=== PATIENT | male | born 1960 | race Caucasian/White ===

== ENCOUNTER 2016-10-09 20:55 | Inpatient (IN) | payer OTHER ==
[2016-10-07 13:37] LABS: A/G RATIO 1.1 (0.7-1.9); ALBUMIN 3.6 G/DL (3.5-5.0); BUN (BLOOD UREA NITROGEN) 20 MG/DL (6-23); CALCIUM, SERUM 8.9 MG/DL (8.5-10.4); CHLORIDE, SERUM 103 MMOL/L (96-112); CO2 (CARBON DIOXIDE) 29 MMOL/L (24-34); CREATININE 1.11 MG/DL (0.70-1.30); GFR AFRICAN AMERICAN 84 ML/MIN (>=60); GFR NON AFRICAN AMERICAN 73 ML/MIN (>=60); GLOBULIN 3.3 G/DL (2.5-4.1); POTASSIUM, SERUM 4.9 MMOL/L (3.5-5.3); SGOT(AST) 17 U/L (5-40); SGPT(ALT) 23 U/L (5-65); SODIUM, SERUM 141 MMOL/L (135-148); TOTAL BILIRUBIN 0.5 MG/DL (0-1.2); TOTAL PROTEIN 6.9 G/DL (6.0-8.5)
[2016-10-07 13:41] LABS: ALKALINE PHOSPHATASE 100 U/L (45-117); GLUCOSE, SERUM 217 MG/DL (60-99)
--- NOTE | ~2016-10-09 | OP ---
Record Of Operation [facility] [address] [place]. [address] NAME: CLEO MCGREGOR : 56 STATUS : ADM IN PAT#: [id number] AGE: 56 ADM/REG DATE : 10/09/16 MR#: [id number] REPORT SERV DATE: 10/14/16 DICTATED BY: TROY CHRISTINE DATE: 10/14/16 REPORT STATUS : Draft TRANSCRIBED BY: MODSiddhartha DATE: 10/14/16 DATE OF PROCEDURE: 10/14/2016 PREOPERATIVE DIAGNOSES: 1. Osteomyelitis, left foot, diabetic mal perforans ulcer. 2. Osteomyelitis of the forefoot. 3. Right mid superficial femoral artery obstruction. POSTOPERATIVE DIAGNOSIS: High-grade complex dissection of the right mid superficial femoral artery. PROCEDURE PERFORMED: 1. Aortogram with left lower extremity runoff. 2. Selective catheterization of left SFA and popliteal artery with direct arteriography. 3. Angioplasty stent reconstruction of the mid segment of the left superficial femoral artery with a 6 x 100 stent with secondary angioplasty 6 x 80 balloon. SURGEON: Troy Christine M.D. ANESTHESIA: Local MAC. COMPLICATIONS: None. INDICATION FOR PROCEDURE: Secondary to this very pleasant, 56-year-old diabetic male presenting with an ulceration of the base of the left foot associated with osteomyelitis of the forefoot. Recommendations were made for IV antibiotics, debridement, arteriogram for a potential limb salvage. The patient presents today for the arteriogram portion of the recommendation. DETAILS OF THE PROCEDURE: The patient was brought to the endovascular operating room, placed in supine position, prepped and draped in routine sterile fashion with attention to the left leg and bilateral groin. The right femoral artery was interrogated with ultrasound and found to be compressible. Needle was passed into this artery under direct ultrasound vision. Pictures were then taken and placed on the chart. Next, wires were passed into the aorta followed by a 6-[place] sheath, and then a [place] flush catheter advanced to the level of L3. AP abdominal aortogram was performed showing evidence of widely patent infrarenal aorta, patent common external iliac arteries bilaterally. Catheter was then advanced from the right side into the left femoral. Arteriogram demonstrated right patent common femoral artery, profunda femoral artery, and superficial femoral artery proximal mid distal; however, there was evidence of a flap and dissection. Catheter was advanced to this level. An arteriogram demonstrated a fairly long complex spiraling dissection associated with the complex plaque. Wire was passed through this area. Arteriogram was performed distally of the popliteal and the tibial vessels. All 3 were patent to the ankle with excellent flow to the pedal arch. The proximal SFA was then remitted. Distal SFA and proximal popliteal were then readdressed. Arteriogram confirmed the dissection. Stent was then placed, 6 x 100, bridging the dissection, opening this adequately. Angioplasty was Record Of Operation [address] [address] NAME: CLEO MCGREGOR : 56 STATUS : ADM IN PAT#: [id number] AGE: 56 ADM/REG DATE : 10/09/16 MR#: [id number] REPORT SERV DATE: 10/14/16 DICTATED BY: TROY CHRISTINE DATE: 10/14/16 REPORT STATUS : Draft TRANSCRIBED BY: ARIE DATE: 10/14/16 performed to secure the stent into position. With this completed, wires and catheter sheaths were then removed. The right groin was then closed with Angio-Seal. Patient tolerated the procedure well. NICOLAS/ARIE Troy Christine M.D. / [id number]
--- NOTE | ~2016-10-09 | CN ---
Consultation Report [facility] [address] [place]. [address] NAME: CLEO MCGREGOR : 56 STATUS : ADM IN [facility]#: [id number] AGE: 56 ADM/REG DATE : 10/09/16 MR#: [id number] REPORT SERV DATE: 10/10/16 DICTATED BY: SOBEIDA IGLESIAS DATE: 10/10/16 REPORT STATUS : Draft TRANSCRIBED BY: MODSiddhartha DATE: 10/10/16 CONSULTATION DATE OF CONSULTATION: 10/10/2016 REASON FOR CONSULTATION: Left foot ulceration. HISTORY OF PRESENT ILLNESS: The patient is a 56-year-old white male, who presented to the emergency room with a complaint of an infected ulceration to his left foot. The patient has a lengthy history of diabetes and with multiple previous ulcerations and previous amputations. The patient states that he has been seeing Dr. Umu Real, his health consultant for nail care and she noticed a wound on the bottom of his left foot. At that time, she recommended hospital admission for IV antibiotics and evaluation. The patient does state that he has noticed some minor redness on the foot and drainage prior to the visit with his health consultant, but noticed worsening after her evaluation. He states that he noticed a "gangrene smell" on his foot 2 to 3 days prior to his visit with Dr. Real. The patient currently denies nausea, vomiting, fever, or chills. PAST MEDICAL HISTORY: Includes diabetes, diabetic neuropathy, history of liver transplant, hypertension, chronic kidney disease, history of GI bleed, previous digital and forefoot amputations. MEDICATIONS: Lengthy list of medications were reviewed in the chart. SOCIAL HISTORY: Denies alcohol, tobacco, or drug use. FAMILY HISTORY: Unremarkable. REVIEW OF SYSTEMS: No other pertinent findings on review of system. Currently denies chest pain. Currently denies nausea, vomiting, fever, or chills. PHYSICAL EXAMINATION: GENERAL: The patient is seen at bedside, resting comfortably, in no acute distress. VITAL SIGNS: The patient is afebrile with vital signs stable. HEENT: Normocephalic, atraumatic. No visible drainage. LUNGS: Unlabored breathing with normal symmetrical effort. CARDIOVASCULAR: Pulses are faintly palpable. Regular rate. In the right, digits show capillary refill time less than 3 seconds. The left distal stump shows a capillary refill time approximately 3 seconds. ABDOMEN: The patient is moderately obese. No distention. DERMATOLOGICAL: There is an approximate 3 cm x 3 cm large loosely adhered black eschar to the plantar lateral aspect of the left distal stump where a previous transmetatarsal amputation has been performed. At this time, utilizing aseptic technique, a #15 scalpel and Consultation Report [facility] [address] [place]. [address] NAME: CLEO MCGREGOR : 56 STATUS : ADM IN PAT#: [id number] AGE: 56 ADM/REG DATE : 10/09/16 MR#: [id number] REPORT SERV DATE: 10/10/16 DICTATED BY: SOBEIDA IGLESIAS DATE: 10/10/16 REPORT STATUS : Draft TRANSCRIBED BY: ARIE DATE: 10/10/16 pickups was utilized to perform an excisional debridement of the loose eschar necrotic tissue continued through the subcutaneous tissue down to the deep fascia, which was excised. There was no distinct purulence. Deep cultures were taken of this area including aerobic, anaerobic, acid-fast fungal gram stain. Sterile probing with a Q-tip probe to bone, which what appeared to be to the stump of the fifth metatarsal. At this time, wet-to-dry packing ensued with the sterile dressing. There is erythema surrounding the left plantar and distal stump. No proximal streaking. No soft tissue crepitus appreciated. NEUROLOGIC: Epicritic sensation is grossly absent. LABORATORY DATA: White count is 12.4, H and H 13.6 and 39.9, platelets 198. X-rays negative for gas within the tissues. No radiographic signs of osteomyelitis. ASSESSMENT: 1. Left foot cellulitis with ulceration. 2. Diabetes. PLAN: Full-thickness again debridement was performed excisionally as described above, deep cultures were taken as well. I have ordered arterial Dopplers as well as an MRI of the left foot depending on kidney function contrast, hopefully can be utilized. I have also ordered Infectious Disease consultation as well for antibiotic recommendations. Wet-to-dry dressing was placed about the patient's left foot and ankle. Nonweightbearing to the left foot was discussed with the patient and we will follow up with the patient. PATRICK/ARIE Megha LackeyPKarlo / [id number] CC: MD Jacquie Marcus M.D.
--- NOTE | ~2016-10-09 | OP ---
Record Of Operation [facility] [address] [place]. [address] NAME: CLEO MGCREGOR : 56 STATUS : ADM IN PAT#: [id number] AGE: 56 ADM/REG DATE : 10/09/16 MR#: [id number] REPORT SERV DATE: 10/18/16 DICTATED BY: SOBEIDA IGLESIAS DATE: 10/18/16 REPORT STATUS : Draft TRANSCRIBED BY: MODL DATE: 10/18/16 DATE OF PROCEDURE: 10/16/2016 PREOPERATIVE DIAGNOSES: Left fourth metatarsal osteomyelitis and left fifth metatarsal osteomyelitis. POSTOPERATIVE DIAGNOSES: Left fourth metatarsal osteomyelitis and left fifth metatarsal osteomyelitis. PROCEDURES: 1. Left fourth and fifth proximal metatarsal amputation. 2. Left peroneal brevis tendon deep transfer into the cuboid. SURGEON: Megha LackeyPJaneen. ANESTHESIA: General local anesthetic. ESTIMATED BLOOD LOSS: Minimal. COMPLICATIONS: None. INJECTABLES: Approximately 10 mL of a 1:1 mixture of 1% Xylocaine plain and 0.5% Marcaine plain. MATERIALS: Include a #2 FiberLoop Arthrex tenodesis anchor, 2-0 Vicryl skin nicola, and 3-0 nylon. CULTURES: Include aerobic, anaerobic, acid fast, fungal, Gram stain. SPECIMENS: Include the fourth and fifth proximal metatarsals (patient has had a previous transmetatarsal amputation). PROCEDURE IN DETAIL: Under mild sedation, the patient was brought to the operating room and placed on the operating table in supine position. Following general anesthesia, local anesthesia obtained about the patient's left foot. Left foot, ankle, and lower leg were scrubbed, prepped, and draped in the usual aseptic manner. Attention was directed to the procedure. Procedure #1 is left proximal fourth and fifth metatarsal amputation. Attention directed to the distal stump of the previous transmetatarsal amputation where a necrotic ulceration was present at the remaining ends of the fourth and fifth metatarsal. This was a probing to bone ulceration with again necrotic tissue present. At this time, an incision was made along the course of the lateral aspect of the remaining fifth metatarsal and an elliptical incision encompassed the distal stump ulceration to the plantar aspect of the foot. Sharp dissection was continued down the level of fifth metatarsal. Deep dissection continued isolating the base of the fourth and fifth metatarsals, all bleeders were cauterized and Record Of Operation [facility] [address] [place]. [address] NAME: CLEO MCGREGOR : 56 STATUS : ADM IN PAT#: [id number] AGE: 56 ADM/REG DATE : 10/09/16 MR#: [id number] REPORT SERV DATE: 10/18/16 DICTATED BY: SOBEIDA IGLESIAS DATE: 10/18/16 REPORT STATUS : Draft TRANSCRIBED BY: ARIE DATE: 10/18/16 ligated as necessary. Complete disarticulation was performed at the fourth and fifth metatarsal cuboid base as well as from the third metatarsal. Both bones were sent to pathology for evaluation. It should be noted that the MRI showed the fifth metatarsal was positive for osteomyelitis as well as the fourth metatarsal. The cuboid was spared. Deep cultures were taken at this time. Pulse lavage ensued. There was no deep necrosis. Cuboid showed no intraoperative signs of bone infection and was hard upon palpation as well as the third metatarsal. There was again no deep abscess present at this site. Attention now was directed to next procedure. Next procedure is left peroneal brevis tendon deep transfer into the cuboid. Attention now is directed to the cuboid where the tendon was previously meticulously dissected off the base of the styloid process of the fifth metatarsal. The tendon was sized and FiberLoop was utilized to reapproximate the base of the brevis tendon. The tendon was sized and appropriate drill hole was placed into the cuboid. The peroneal brevis tendon was then placed into the cuboid. Tenodesis anchor was then placed into the drill hole. Excellent compression was noted. Over sewing ensued with a FiberWire to the peroneal longus tendon as well, this was done in the foot, the foot in a dorsiflexed everted position. At this time, attention directed to closure of the deep and superficial fascia reapproximated and coapted utilizing 2-0 Vicryl, skin was reapproximated and coapted using skin nicola and 3-0 and 4-0 nylon. A well-padded dressing was placed about the patient's left foot, ankle, and lower leg. A well-padded posterior splint was also applied. The patient tolerated the procedure and anesthesia well and was transferred to the recovery room with vital signs stable. Vascular status intact to all toes. Following a period of postoperative monitoring, the patient will be transferred to the floor, resume preoperative medications, IV antibiotics as per Infectious Disease, and I will follow the patient on the floor. PATRICK/ARIE Sallie Lackey.P.M. / [id number] CC: Heriberto Stevens M.D.
--- NOTE | ~2016-10-09 | IDS ---
Interim Discharge Summary [facility] [address] [place]. [address] NAME: CLEO MCGREGOR : 56 STATUS : ADM IN [facility]#: [id number] AGE: 56 ADM/REG DATE : 10/09/16 MR#: [id number] REPORT SERV DATE: 10/16/16 DICTATED BY: JAVIER ARE DATE: 10/14/16 REPORT STATUS : Draft TRANSCRIBED BY: MODL DATE: 10/14/16 ADMISSION DATE: 10/09/2016 DISCHARGE DATE: REASON FOR ADMISSION: Right plantar diabetic foot ulcer with probable osteo. HISTORY OF PRESENT ILLNESS: Please refer to Dr. Patel's history and physical dated 10/10/2016, for complete details regarding the patient's admission. In brief, the patient was admitted to the Hospitalist Service for management and evaluation of his right foot infection. HOSPITAL COURSE: The patient had uncomplicated hospital course so far. He is a known insulin-dependent diabetic with a history of liver transplant on tacrolimus along with severe peripheral vascular disease followed by Dr. Christine. He has already had a foot amputation. He presented with an ulcer on his foot. An x-ray was done which showed prior amputation and soft tissue swelling, otherwise negative left foot; prior amputations and hammertoe deformities, otherwise negative right foot. Dr. Murrieta who was familiar with the patient was consulted and recommended getting an MRI which showed mid foot amputation more extensive signal alteration in the remaining proximal portion of the fifth metatarsal. Underlying osteomyelitis is probably suspected in all 3 areas. He was started on broad- spectrum IV antibiotics. Dr. Shields with Infectious Disease was consulted. Given his peripheral vascular disease, Dr. Christine was consulted and plans on doing an aortogram today on 10/14/2016, followed by a possible repeat I and D versus amputation by Dr. Murrieta. Dr. Murrieta's planned anticipated surgery is dependent on the findings from Dr. Christine. Dr. Murrieta did perform an I and D at the bedside. Cultures were obtained which showed E. coli, MRSA, and group B strep. His diabetes has been okay controlled. His hemoglobin A1c is 8. I am increasing his insulin regimen today. We continued his tacrolimus for his history of having a liver transplant. His chronic kidney disease stage 3 has been at baseline. DISPOSITION: Per oncoming hospitalist who will assume care of the patient on October 15, 2016, but anticipate likely discharging him home pending the outcome of the surgeries and findings on today's aortogram along with the final infectious Disease recommendations. INTERIM DIAGNOSES: 1. Left plantar diabetic foot ulcer with probable osteomyelitis, status post bedside I and D done by Dr. Murrieta. 2. Insulin-dependent diabetes with neuropathy and nephropathy. 3. Hypertension. 4. History of liver transplant on tacrolimus. 5. CKD stage 3. 6. Severe peripheral vascular disease. PROCEDURES: Include consultation with Dr. Christine; Dr. Murrieta; Dr. Shields. MRI of the lower extremity and bilateral foot x-ray. Interim Discharge Summary [address] [address] NAME: CLEO MCGREGOR : 56 STATUS : ADM IN [facility]#: [id number] AGE: 56 ADM/REG DATE : 10/09/16 MR#: [id number] REPORT SERV DATE: 10/16/16 DICTATED BY: JAVIER RAE DATE: 10/14/16 REPORT STATUS : Draft TRANSCRIBED BY: ARIE DATE: 10/14/16 ZAYDA/ARIE Javier Rae MD / [id number] CC: MD Jacquie Marcus M.D.
--- NOTE | ~2016-10-09 | DS ---
Discharge Summary [facility] [id number] [place]. [address] NAME: CLEO MCGREGOR : 56 STATUS : DIS IN PAT#: [id number] AGE: 56 ADM/REG DATE : 10/09/16 MR#: [id number] REPORT SERV DATE: 10/23/16 DICTATED BY: ADAN BILLINGS DATE: 10/22/16 REPORT STATUS : Draft TRANSCRIBED BY: ARIE DATE: 10/22/16 ADMISSION DATE: 10/09/2016 DISCHARGE DATE: 10/22/2016 PRINCIPAL DIAGNOSIS: Left foot osteomyelitis with soft tissue cellulitis. SECONDARY DIAGNOSES: Type 1 and type 2 diabetes mellitus uncontrolled with hyperglycemia and hypertension. History of liver transplant. HISTORY OF PRESENT ILLNESS: Please see Dr. Patel's dictation 10/09/2016. HOSPITAL COURSE: Please see interim summary by Dr. Rae on 10/14/2016 and by myself 10/21/2016. Subsequent hospital course, the patient was actually accepted on 10/22/2016 to [facility] and transferred there in satisfactory condition with 1800 calorie, low- salt diet. Physical therapy per facility. Nonweightbearing on the left foot. Following up with Dr. Jacquie William in one-two weeks following SNF discharge on the following medications: Prinivil 20 b.i.d., metformin 1000 twice a day, Levemir 50 t.i.d., Cipro 500 b.i.d. for six more days, Zyvox 600 b.i.d. for 6 more days, Florastor for 6 more days, daily aspirin and Plavix, Percocet p.r.n., Prograf 3 mg b.i.d., Norvasc 10 daily, Lopressor 100 b.i.d., Rocaltrol every other day, NovoLog 50 units with meals. Greater than 30 minutes were spent in care of this patient on discharge planning on discharge day. DICTATED BY: Heriberto Stevens/ARIE Adan Blilings M.D. / [id number] CC: Heriberto Stevens M.D. Mark S Womack IV, M.D. Paul Cornea, M.D.
--- NOTE | ~2016-10-09 | IDS ---
Interim Discharge Summary [facility] [address] [place]. [address] NAME: CLEO MCGREGOR : 56 STATUS : ADM IN [facility]#: [id number] AGE: 56 ADM/REG DATE : 10/09/16 MR#: [id number] REPORT SERV DATE: 10/21/16 DICTATED BY: ADAN BILLINGS DATE: 10/21/16 REPORT STATUS : Draft TRANSCRIBED BY: MODSiddhartha DATE: 10/21/16 ADMISSION DATE: 10/09/2016 DISCHARGE DATE: PRINCIPAL DIAGNOSES: Septic foot flat in the setting of a prior deep transmetatarsal amputation. SECONDARY DIAGNOSES: Type 2 diabetes, uncontrolled in the setting of comorbid type 1 diabetes, hypertension, history of liver transplant, history of chronic kidney disease stage 2. HISTORY OF PRESENT ILLNESS: Please see dictation by Dr. Patel 10/09/2016. HOSPITAL COURSE: Please see interim summary by Dr. Rae from 10/14/2016. Subsequent hospital course, the patient passed his peripheral arterial evaluation. He did have an arterial angiogram with percutaneous intervention to the superficial femoral artery and a stent was placed in the distal area of the SFA in the proximal popliteal. The patient ultimately would undergo further operation for a salvage of the left TMA. He was seen by Dr. Murrieta, who did an amputation of the left fifth metatarsal remnant, due to the location of the infection. The tendon was removed and replaced to maintain adequate eversion of the limb. Fortunately, no osteomyelitis was found. He remained on antibiotics per Dr. Shields's wishes and was transitioned to Zyvox and ciprofloxacin. Meanwhile, efforts were made for continued diabetic control, insulin was titrated, he was both a type 1 and type 2, as he had a partial pancreatectomy associated with his liver transplant, and we had a better result by adding a siebel consultant to his high dose of insulin. Blood pressure was also controlled. He had no further problems other than his chronic mild loose stool. We anticipated that he would transfer to a alf facility on 10/22/2016. FREDDIE/ARIE Adan Billings M.D. / [id number] CC: Heriberto Stevens M.D. Paul Cornea, M.D. C. Jason Wamack, D.P.M.
--- NOTE | ~2016-10-09 | HP ---
History And Physical [address] [place]. [address] NAME: CLEO CAVANAUGH : 56 STATUS : ADM IN [facility]#: [id number] AGE: 56 ADM/REG DATE : 10/09/16 MR#: [id number] REPORT SERV DATE: 10/10/16 DICTATED BY: CASEY RUSS DATE: 10/09/16 REPORT STATUS : Draft TRANSCRIBED BY: MODL DATE: 10/09/16 DATE OF ADMISSION: 10/09/2016 CHIEF COMPLAINT: Ulcer in the sole of his foot. HISTORY OF PRESENT ILLNESS: This is a 56-year-old male with history of longstanding diabetes mellitus, diabetic foot ulcers with amputations in the past, history of liver transplantation, and essential hypertension who presents to the emergency room at [facility] with the above-mentioned complaint. History is obtained from the patient, his family who is at bedside, and reviewing data available on the [employer] system. According to Mr. Cavanaugh and his family, he had been in his usual state of health until today when he went to his airport maintenance chief's office to clip his toenails on the right lower extremity when she noticed there was a large ulcer on his left foot. The patient had not even been aware of this although he in retrospect noticed some soiling in his socks in the last couple of days or so. He also had noticed some bad odor from his feet and unfortunately had not checked with a mirror as he was supposed to do. His airport maintenance chief told him to go to the emergency room right away to be evaluated. In the emergency room, he did have a diabetic foot ulcer with infection and discharge, had diabetes with hyperglycemia, and Hospitalist Service was asked to admit him for further evaluation and treatment. At the time of my evaluation, he denied any chest pain, palpitations, or orthopnea. He had no cough, hemoptysis, night sweats, or weight loss. He has not had any recent falls or loss of consciousness. No history of recent fevers, chills, nausea, vomiting, or diarrhea. No history of hematemesis, hematochezia, or hematuria. No other history of recent travel or exposures other than those mentioned above. He does not have any history of recent trauma to his foot as well. PAST MEDICAL HISTORY: Significant for history of recurrent diabetic foot ulcers and insulin- dependent diabetes mellitus. He has had a liver transplantation done at [facility] and is on immunosuppressive therapy. He has essential hypertension, chronic kidney disease, history of GI bleed in the past, has had osteomyelitis in the left lower extremity with multiple amputations of the digits. This was done by Dr. Toribio. SOCIAL HISTORY: He does not smoke, drink, or use recreational drugs. FAMILY HISTORY: Noncontributory. MEDICATIONS: At home were reviewed by me in the chart today and reordered by me. REVIEW OF SYSTEMS: As in history of present illness. All other systems were reviewed in detail and are quite unremarkable. PHYSICAL EXAMINATION: History And Physical [address] [address] NAME: CLEO CAVANAUGH : 56 STATUS : ADM IN [facility]#: [id number] AGE: 56 ADM/REG DATE : 10/09/16 MR#: [id number] REPORT SERV DATE: 10/10/16 DICTATED BY: CASEY RUSS DATE: 10/09/16 REPORT STATUS : Draft TRANSCRIBED BY: ARIE DATE: 10/09/16 GENERAL: This is a pleasant, 56-year-old male, not in any acute distress. HEENT: His head is atraumatic, normocephalic. He is alert, awake, oriented to time, place, and person. Pupils are equal, reacting to light and accommodating. External ocular muscles are intact. Membranes are moist and pink. Sclerae are nonicteric. NECK: Supple with no jugular venous distention, lymphadenopathy, or thyromegaly. LUNGS: Clear to auscultation with no wheezes, rubs, or crackles. HEART: Heart sounds were regular with no murmurs, rubs, or gallops. ABDOMEN: Soft and nontender. Bowel sounds are present. EXTREMITIES: Showed ulcer in the left lower extremity with purulent-appearing discharge and foul smell. The right lower extremity shows no edema or cyanosis or clubbing. NEUROLOGIC: Grossly intact. No focal sensory or motor deficits. Higher functions appeared intact. He was able to move all four extremities. VITAL SIGNS: His vital signs today showed a temperature of 99.6, pulse 100, respirations 16 a minute, blood pressure was 175/78, oxygen saturations were 97%, breathing 2 L of oxygen via nasal cannula. LABORATORY DATA: Reviewed on the [employer] system showed normal CMP with a blood glucose of 178. His A1c on 10/07/2016 was 8.0. His lactate was 1.3 today. CBC showed a white blood cell count of 12,400, hemoglobin was 13.6, hematocrit 39.9, and platelet count was 198,000. Urinalysis was not performed today. Films of the x-ray of the foot did not reveal any obvious osteomyelitis with no soft-tissue abscesses seen. IMPRESSION: 1. Diabetic infected foot ulcer. 2. Diabetes mellitus with hyperglycemia. 3. Essential hypertension. 4. Chronic kidney disease. 5. History of liver transplantation. 6. History of gastrointestinal bleed. 7. History of osteomyelitis with recurrent amputations in the left lower extremity and the right lower extremity as well. PLAN: We will admit Mr. Cavanaugh to the Hospitalist Service with defensive monitoring. After cultures are obtained, we will start him on empiric IV antibiotics with vancomycin and Zosyn. We will go ahead and consult Wound Care to evaluate him. We will also consult Dr. Toribio to see him in the morning. Meanwhile, we will start him on blood sugar control with NovoLog given subcutaneously per sliding scale and check his A1c. We will also place him on unfractionated heparin for DVT prophylaxis while he is here. I have discussed the above plans with the patient and the family. Questions were answered, and they are agreeable to the above recommendations. Hospitalist Service will be following him during his stay. /ARIE History And Physical [address] [address] NAME: CLEO CAVANAUGH : 56 STATUS : ADM IN [facility]#: [id number] AGE: 56 ADM/REG DATE : 10/09/16 MR#: [id number] REPORT SERV DATE: 10/10/16 DICTATED BY: CASEY RUSS DATE: 10/09/16 REPORT STATUS : Draft TRANSCRIBED BY: ARIE DATE: 10/09/16 Casey Russ M.D. / [id number] CC: Darinel Bell M.D. Jacquie William M.D.
[~2016-10-09 20:55] MED LIST: ACET500CAP PO; ALLEGRA180 PO; ASAB PO; FISH-EPA1000 MG PO; HUMALOG SC; INSULIN SC; LOM PO; LOP100 PO; NORV10 PO; PERCOCET 7.5/321 TAB PO; PRIN5 PO; PROGRAF1 PO; REFRESH OPH; ROCALTROL 0.0.25 MCG PO; TOUJEO SQ; TUMS E-X750 M2 PO; ULTRAM50 PO
[2016-10-09 21:04] LABS: BASOPHILS 0.2 %; BASOPHILS ABSOLUTE 0.03 10/3/uL (0.0-0.16); EOSINOPHILS 0.9 %; EOSINOPHILS ABSOLUTE 0.11 10/3/uL (0.0-0.53); HEMATOCRIT 39.9 % (40.0-51.0); HEMOGLOBIN 13.6 g/dL (13.6-17.8); IMMATURE GRANULOCYTES 0.9 %; IMMATURE GRANULOCYTES ABSOLUTE 0.11 10/3/uL (0.0-0.11); LYMPHOCYTES 22.3 %; LYMPHOCYTES ABSOLUTE 2.78 10/3/uL (0.67-4.30); MANUAL DIFF NO %; MEAN CORPUS HGB CONC 34.1 g/dL (32.0-36.0); MEAN CORPUSCULAR HEMOGLOB 29.1 pg (26.0-34.0); MEAN CORPUSCULAR VOLUME 85.3 fL (80-100); MEAN PLATELET VOLUME 9.7 fL (9.2-13.0); MONOCYTES 10.4 %; MONOCYTES ABSOLUTE 1.29 10/3/uL (0.21-1.20); NEUTROPHILS 65.3 %; NEUTROPHILS ABSOLUTE 8.12 10/3/uL (2.02-8.40); PLATELET COUNT 198 10/3/uL (150-400); RBC DISTRIBUTION WIDTH 13.8 % (12.0-16.0); RED CELL COUNT 4.68 10/6/uL (4.7-6.1); WHITE BLOOD CELLS 12.4 10/3/uL (4.5-10.5)
[2016-10-09 21:12] LABS: INTERNATIONAL NORMAL RATI 1.1 UNITS (-); PARTIAL THROMBO TIME 27.3 SEC (22.5-37.2)
[2016-10-09 21:20] LABS: A/G RATIO 0.8 (0.7-1.9); ALBUMIN 3.4 G/DL (3.5-5.0); ALKALINE PHOSPHATASE 98 U/L (45-117); BUN (BLOOD UREA NITROGEN) 17 MG/DL (6-23); CALCIUM, SERUM 8.8 MG/DL (8.5-10.4); CHLORIDE, SERUM 104 MMOL/L (96-112); CO2 (CARBON DIOXIDE) 29 MMOL/L (24-34); GFR AFRICAN AMERICAN 77 ML/MIN (>=60); GFR NON AFRICAN AMERICAN 66 ML/MIN (>=60); GLUCOSE, SERUM 178 MG/DL (60-99); POTASSIUM, SERUM 4.3 MMOL/L (3.5-5.3); SGOT(AST) 16 U/L (5-40); SGPT(ALT) 24 U/L (5-65); SODIUM, SERUM 139 MMOL/L (135-148); TOTAL BILIRUBIN 0.4 MG/DL (0-1.2); TOTAL PROTEIN 7.5 G/DL (6.0-8.5)
[2016-10-09 21:22] LABS: GLOBULIN 4.1 G/DL (2.5-4.1)
[2016-10-09] MEDS ORDERED: CYMBALTA30 PO (21:26)
[2016-10-09] MEDS ORDERED: NEUR400 PO (21:26)
[2016-10-09 21:27] LABS: LACTATE 1.3 MMOL/L (0.3-2.4)
[2016-10-09] MEDS ORDERED: BEN25 PO (21:28)
[2016-10-09 22:13] LABS: PROCALCITONIN 0.06 ng/mL (<0.5)
[2016-10-10 05:57] LABS: BASOPHILS 0.2 %; BASOPHILS ABSOLUTE 0.02 10/3/uL (0.0-0.16); EOSINOPHILS 1.4 %; EOSINOPHILS ABSOLUTE 0.14 10/3/uL (0.0-0.53); HEMATOCRIT 40.8 % (40.0-51.0); HEMOGLOBIN 13.6 g/dL (13.6-17.8); IMMATURE GRANULOCYTES 1.2 %; IMMATURE GRANULOCYTES ABSOLUTE 0.12 10/3/uL (0.0-0.11); LYMPHOCYTES 25.2 %; MEAN CORPUS HGB CONC 33.3 g/dL (32.0-36.0); MEAN CORPUSCULAR HEMOGLOB 28.6 pg (26.0-34.0); MEAN CORPUSCULAR VOLUME 85.9 fL (80-100); MEAN PLATELET VOLUME 9.5 fL (9.2-13.0); MONOCYTES ABSOLUTE 0.99 10/3/uL (0.21-1.20); NEUTROPHILS ABSOLUTE 6.16 10/3/uL (2.02-8.40); PLATELET COUNT 189 10/3/uL (150-400); RBC DISTRIBUTION WIDTH 13.8 % (12.0-16.0); RED CELL COUNT 4.75 10/6/uL (4.7-6.1); WHITE BLOOD CELLS 9.9 10/3/uL (4.5-10.5)
[2016-10-10 06:05] LABS: MANUAL DIFF NO %
[2016-10-10 06:15] LABS: BUN (BLOOD UREA NITROGEN) 15 MG/DL (6-23); CALCIUM, SERUM 8.6 MG/DL (8.5-10.4); CHLORIDE, SERUM 106 MMOL/L (96-112); CO2 (CARBON DIOXIDE) 29 MMOL/L (24-34); CREATININE 1.11 MG/DL (0.70-1.30); GFR AFRICAN AMERICAN 84 ML/MIN (>=60); GFR NON AFRICAN AMERICAN 73 ML/MIN (>=60); GLUCOSE, SERUM 176 MG/DL (60-99); PHOSPHORUS, SERUM 2.8 MG/DL (2.5-4.5); SODIUM, SERUM 141 MMOL/L (135-148)
[2016-10-10 06:17] LABS: POTASSIUM, SERUM 3.9 MMOL/L (3.5-5.3)
[2016-10-12 05:09] LABS: BUN (BLOOD UREA NITROGEN) 17 MG/DL (6-23); CHLORIDE, SERUM 108 MMOL/L (96-112); CO2 (CARBON DIOXIDE) 29 MMOL/L (24-34); CREATININE 1.14 MG/DL (0.70-1.30); GFR AFRICAN AMERICAN 82 ML/MIN (>=60); GFR NON AFRICAN AMERICAN 70 ML/MIN (>=60); GLUCOSE, SERUM 164 MG/DL (60-99); SODIUM, SERUM 140 MMOL/L (135-148)
[2016-10-12 05:10] LABS: POTASSIUM, SERUM 4.7 MMOL/L (3.5-5.3)
[2016-10-13 07:44] LABS: HEMATOCRIT 41.2 % (40.0-51.0); HEMOGLOBIN 13.7 g/dL (13.6-17.8); MEAN CORPUS HGB CONC 33.3 g/dL (32.0-36.0); MEAN CORPUSCULAR HEMOGLOB 28.8 pg (26.0-34.0); MEAN CORPUSCULAR VOLUME 86.7 fL (80-100); MEAN PLATELET VOLUME 9.7 fL (9.2-13.0); PLATELET COUNT 238 10/3/uL (150-400); RBC DISTRIBUTION WIDTH 13.3 % (12.0-16.0); RED CELL COUNT 4.75 10/6/uL (4.7-6.1); WHITE BLOOD CELLS 9.1 10/3/uL (4.5-10.5)
[2016-10-13 07:47] LABS: MANUAL DIFF YES %
[2016-10-13 08:10] LABS: BAND NEUTROPHILS 4 %; BASOPHILS 1 %; BASOPHILS ABSOLUTE (CALC) 0.09 10/3/uL (0.0-0.16); EOSINOPHILS 3 %; EOSINOPHILS ABSOLUTE (CALC) 0.27 10/3/uL (0.0-0.53); LYMPHOCYTES 24 %; LYMPHOCYTES ABSOLUTE (CALC) 2.18 10/3/uL (0.67-4.30); MONOCYTES 8 %; MONOCYTES ABSOLUTE (CALC) 0.73 10/3/uL (0.21-1.20); NEUTROPHILS ABSOLUTE (CALC) 5.82 10/3/uL (2.02-8.40); PLATELET ESTIMATE ADQ (ADEQUATE); RBC MORPHOLOGY NORM (NORMAL); SEGMENTED NEUTROPHIL (0) 60 %; TOTAL NUCLEATED CELLS 100
[2016-10-15 05:51] LABS: BUN (BLOOD UREA NITROGEN) 18 MG/DL (6-23); CALCIUM, SERUM 8.7 MG/DL (8.5-10.4); CHLORIDE, SERUM 107 MMOL/L (96-112); CO2 (CARBON DIOXIDE) 21 MMOL/L (24-34); CREATININE 1.16 MG/DL (0.70-1.30); GFR AFRICAN AMERICAN 80 ML/MIN (>=60); GFR NON AFRICAN AMERICAN 69 ML/MIN (>=60); GLUCOSE, SERUM 302 MG/DL (60-99); POTASSIUM, SERUM 4.6 MMOL/L (3.5-5.3); SODIUM, SERUM 138 MMOL/L (135-148)
[2016-10-15 06:23] LABS: BASOPHILS 0.5 %; BASOPHILS ABSOLUTE 0.05 10/3/uL (0.0-0.16); EOSINOPHILS 2.3 %; EOSINOPHILS ABSOLUTE 0.25 10/3/uL (0.0-0.53); HEMATOCRIT 41.7 % (40.0-51.0); HEMOGLOBIN 13.9 g/dL (13.6-17.8); IMMATURE GRANULOCYTES 1.4 %; IMMATURE GRANULOCYTES ABSOLUTE 0.15 10/3/uL (0.0-0.11); LYMPHOCYTES ABSOLUTE 1.85 10/3/uL (0.67-4.30); MEAN CORPUS HGB CONC 33.3 g/dL (32.0-36.0); MEAN CORPUSCULAR HEMOGLOB 28.5 pg (26.0-34.0); MEAN CORPUSCULAR VOLUME 85.5 fL (80-100); MONOCYTES 5.4 %; MONOCYTES ABSOLUTE 0.59 10/3/uL (0.21-1.20); NEUTROPHILS 73.4 %; NEUTROPHILS ABSOLUTE 7.98 10/3/uL (2.02-8.40); PLATELET COUNT 227 10/3/uL (150-400); RBC DISTRIBUTION WIDTH 13.6 % (12.0-16.0); RED CELL COUNT 4.88 10/6/uL (4.7-6.1); WHITE BLOOD CELLS 10.9 10/3/uL (4.5-10.5)
[2016-10-15 06:24] LABS: MANUAL DIFF NO %
[2016-10-15 07:07] LABS: EOSINOPHILS 1 %; EOSINOPHILS ABSOLUTE (CALC) 0.11 10/3/uL (0.0-0.53); LYMPHOCYTES 15 %; LYMPHOCYTES ABSOLUTE (CALC) 1.64 10/3/uL (0.67-4.30); MONOCYTES 4 %; MONOCYTES ABSOLUTE (CALC) 0.44 10/3/uL (0.21-1.20); NEUTROPHILS ABSOLUTE (CALC) 8.72 10/3/uL (2.02-8.40); SEGMENTED NEUTROPHIL (0) 80 %; TOTAL NUCLEATED CELLS 100
[2016-10-15 07:08] LABS: PLATELET ESTIMATE ADQ (ADEQUATE); RBC MORPHOLOGY NORM (NORMAL)
[2016-10-17 06:19] LABS: BASOPHILS 0.3 %; BASOPHILS ABSOLUTE 0.04 10/3/uL (0.0-0.16); EOSINOPHILS 1.3 %; EOSINOPHILS ABSOLUTE 0.18 10/3/uL (0.0-0.53); HEMATOCRIT 41.8 % (40.0-51.0); IMMATURE GRANULOCYTES 1.3 %; IMMATURE GRANULOCYTES ABSOLUTE 0.18 10/3/uL (0.0-0.11); LYMPHOCYTES 17.4 %; LYMPHOCYTES ABSOLUTE 2.39 10/3/uL (0.67-4.30); MANUAL DIFF NO %; MEAN CORPUS HGB CONC 33.5 g/dL (32.0-36.0); MEAN CORPUSCULAR VOLUME 86.5 fL (80-100); MEAN PLATELET VOLUME 9.5 fL (9.2-13.0); MONOCYTES 7.9 %; MONOCYTES ABSOLUTE 1.08 10/3/uL (0.21-1.20); NEUTROPHILS 71.8 %; NEUTROPHILS ABSOLUTE 9.85 10/3/uL (2.02-8.40); PLATELET COUNT 234 10/3/uL (150-400); RBC DISTRIBUTION WIDTH 13.3 % (12.0-16.0); RED CELL COUNT 4.83 10/6/uL (4.7-6.1); WHITE BLOOD CELLS 13.7 10/3/uL (4.5-10.5)
[2016-10-17 06:42] LABS: A/G RATIO 0.6 (0.7-1.9); ALBUMIN 2.9 G/DL (3.5-5.0); ALKALINE PHOSPHATASE 109 U/L (45-117); BUN (BLOOD UREA NITROGEN) 17 MG/DL (6-23); CALCIUM, SERUM 9.1 MG/DL (8.5-10.4); CHLORIDE, SERUM 102 MMOL/L (96-112); CO2 (CARBON DIOXIDE) 30 MMOL/L (24-34); CREATININE 1.22 MG/DL (0.70-1.30); GFR AFRICAN AMERICAN 75 ML/MIN (>=60); GFR NON AFRICAN AMERICAN 65 ML/MIN (>=60); GLOBULIN 4.8 G/DL (2.5-4.1); GLUCOSE, SERUM 225 MG/DL (60-99); POTASSIUM, SERUM 4.2 MMOL/L (3.5-5.3); SGOT(AST) 28 U/L (5-40); SGPT(ALT) 46 U/L (5-65); SODIUM, SERUM 139 MMOL/L (135-148); TOTAL BILIRUBIN 0.3 MG/DL (0-1.2); TOTAL PROTEIN 7.7 G/DL (6.0-8.5)
[2016-10-17 16:17] LABS: WBC (NOT ORDERED) (RFLEX) 0 (0-5)
[2016-10-17 16:26] LABS: ASCORBIC ACID (UR NOT ORDER) NEG (NEG); BILIRUBIN, URINE NEGATIVE (NEG); KETONE, URINE NEGATIVE (NEG); LEUKOCYTE ESTERASE(NOT OR NEG (NEG)
[2016-10-17 16:54] LABS: MICROALBUMIN, RANDOM URINE 11.5 MG/DL
[2016-10-22 04:56] LABS: BASOPHILS 0.3 %; BASOPHILS ABSOLUTE 0.03 10/3/uL (0.0-0.16); EOSINOPHILS 2.5 %; EOSINOPHILS ABSOLUTE 0.26 10/3/uL (0.0-0.53); HEMATOCRIT 37.7 % (40.0-51.0); HEMOGLOBIN 12.3 g/dL (13.6-17.8); IMMATURE GRANULOCYTES ABSOLUTE 0.11 10/3/uL (0.0-0.11); LYMPHOCYTES 23.6 %; LYMPHOCYTES ABSOLUTE 2.49 10/3/uL (0.67-4.30); MEAN CORPUS HGB CONC 32.6 g/dL (32.0-36.0); MEAN CORPUSCULAR HEMOGLOB 28.5 pg (26.0-34.0); MEAN CORPUSCULAR VOLUME 87.5 fL (80-100); MEAN PLATELET VOLUME 9.6 fL (9.2-13.0); MONOCYTES 6.4 %; MONOCYTES ABSOLUTE 0.68 10/3/uL (0.21-1.20); NEUTROPHILS 66.2 %; PLATELET COUNT 265 10/3/uL (150-400); RBC DISTRIBUTION WIDTH 13.1 % (12.0-16.0); RED CELL COUNT 4.31 10/6/uL (4.7-6.1); WHITE BLOOD CELLS 10.6 10/3/uL (4.5-10.5)
[2016-10-22 04:57] LABS: MANUAL DIFF NO %
[2016-10-22 05:13] LABS: A/G RATIO 0.6 (0.7-1.9); ALBUMIN 2.7 G/DL (3.5-5.0); CALCIUM, SERUM 9.6 MG/DL (8.5-10.4); CHLORIDE, SERUM 104 MMOL/L (96-112); CO2 (CARBON DIOXIDE) 27 MMOL/L (24-34); CREATININE 1.42 MG/DL (0.70-1.30); GFR AFRICAN AMERICAN 63 ML/MIN (>=60); GFR NON AFRICAN AMERICAN 54 ML/MIN (>=60); GLOBULIN 4.4 G/DL (2.5-4.1); GLUCOSE, SERUM 195 MG/DL (60-99); POTASSIUM, SERUM 4.6 MMOL/L (3.5-5.3); SGOT(AST) 19 U/L (5-40); SGPT(ALT) 23 U/L (5-65); SODIUM, SERUM 140 MMOL/L (135-148); TOTAL BILIRUBIN 0.2 MG/DL (0-1.2); TOTAL PROTEIN 7.1 G/DL (6.0-8.5)
[2016-10-22 05:16] LABS: ALKALINE PHOSPHATASE 87 U/L (45-117); BUN (BLOOD UREA NITROGEN) 21 MG/DL (6-23)
== END 2016-10-22 16:15 | DRG 239 ==
LOC: ER 20:55 → 4SO 22:38
PROVIDERS: Internal Medicine; Internal Medicine Infectious Disease; Internal Medicine Pulmonary Disease; Nurse Practitioner; Specialist
PROC: 0JBR0ZZ Excision of Left Foot Subcutaneous Tissue and Fascia, Open Approach (ICD-10-PCS; principal; 2016-10-10)
PROC: B41D1ZZ Fluoroscopy of Aorta and Bilateral Lower Extremity Arteries using Low Osmolar Contrast (ICD-10-PCS; 2016-10-14 17:00)
PROC: 0Y6N0ZD Detachment at Left Foot, Partial 4th Ray, Open Approach (ICD-10-PCS; 2016-10-14 17:00)
PROC: 047L3DZ Dilation of Left Femoral Artery with Intraluminal Device, Percutaneous Approach (ICD-10-PCS; 2016-10-14 17:00)
PROC: 0Y6N0ZF Detachment at Left Foot, Partial 5th Ray, Open Approach (ICD-10-PCS; 2016-10-14 17:00)
PROC: B44FZZ3 Ultrasonography of Right Lower Extremity Arteries, Intravascular (ICD-10-PCS; 2016-10-14 17:00)
PROC: 0LXW0ZZ Transfer Left Foot Tendon, Open Approach (ICD-10-PCS; 2016-10-16)
DX: E11.51 Type 2 diabetes mellitus with diabetic peripheral angiopathy without gangrene (principal); I77.77 Dissection of artery of lower extremity; E11.22 Type 2 diabetes mellitus with diabetic chronic kidney disease; Z94.4 Liver transplant status; M86.8X7 Other osteomyelitis, ankle and foot; E11.621 Type 2 diabetes mellitus with foot ulcer; E11.40 Type 2 diabetes mellitus with diabetic neuropathy, unspecified; E11.65 Type 2 diabetes mellitus with hyperglycemia; Z79.4 Long term (current) use of insulin; Z79.899 Other long term (current) drug therapy; I12.9 Hypertensive chronic kidney disease with stage 1 through stage 4 chronic kidney disease, or unspecified chronic kidney disease; Z87.891 Personal history of nicotine dependence; E11.69 Type 2 diabetes mellitus with other specified complication; N18.3 Chronic kidney disease, stage 3 (moderate); B96.20 Unspecified Escherichia coli [E. coli] as the cause of diseases classified elsewhere; B96.89 Other specified bacterial agents as the cause of diseases classified elsewhere; B95.62 Methicillin resistant Staphylococcus aureus infection as the cause of diseases classified elsewhere; B95.1 Streptococcus, group B, as the cause of diseases classified elsewhere
CPT/HCPCS: 37226; 71010; 73630-50; 73718-LT; 73721-LT; 75625; 75710; 75774; 76937; 80048; 80053; 80202; 81001; 82043; 82962; 83036; 83605; 83735; 84100; 84145; 85025; 85610; 85730; 87015; 87040; 87070; 87075; 87077; 87102; 87116; 87186; 87205; 87493; 87493-59; 87641; 88304; 88311; 93005; 93923; 96374; 97110-GP; 97162-GP; 97530-GP; 99285; A9270-GY; C1713; C1725; C1760; C1769; C1876; C1894; C8913; G8978-CK-GP; G8979-CI-GP; J0360; J1170; J2250; J2370; J2405; J2543; J2550; J2710; J3010; J3370; J7507; Q9967